=== PATIENT | female | born 1970 | race Two or more races ===

== ENCOUNTER → 2021-02-02 08:00 | Outpatient (CLI) | payer OTHER | END | disposition home or self-care (01) | LOC: LAB 08:00 → EKG 08:00 → ADM 10:00 → CIR.AMB 02-05 10:00 → EDSTATUS 02-05 10:00 → CIR.AMB 02-05 12:30 | PROVIDERS: ATTEND Surgery | DX: R15.9 Full incontinence of feces (principal); Z01.810 Encounter for preprocedural cardiovascular examination; K92.1 Melena; L29.0 Pruritus ani ==